=== PATIENT | female | born 1975 | race Two or more races ===

== ENCOUNTER 2022-11-09 23:41 | Emergency (ER) | payer MEDICAID ==
[~2022-11-09] VITALS: Ht 154.9 cm; Wt 68.0 kg
[2022-11-09] MEDS ORDERED: ALBU8HFA IH (23:50)
[2022-11-09] MEDS ORDERED: MONT-35 PO (23:50)
[2022-11-09] MEDS ORDERED: FLUT1BLS8 IH (23:50)
[2022-11-10] MEDS ORDERED: PredniSONE 20 MG TABLET PO ONE (01:30)
[2022-11-10] MEDS ORDERED: IPRATROPIUM BROMIDE 0.5 MG/2.5 ML NEB SOLUTION NEB ONE (01:30)
[2022-11-10] MEDS ORDERED: ALBUTEROL SULFATE 2.5 MG/0.5 ML NEB SOLUTION NEB ONE (01:30)
[2022-11-10] MEDS ORDERED: GuaiFENesin/D-METHORPHAN [SUGAR-FREE] 200-20MG/10 ML SYRUP UDCUP PO ONE (01:30)
[2022-11-10] MEDS ORDERED: GUAIFDM PO (03:02)
[2022-11-10] MEDS ORDERED: ALBU8HFA IH (03:02)
[2022-11-10] MEDS ORDERED: PRED-554 PO (03:02)
[2022-11-10] MEDS ORDERED: IPRA3AMP24 NEB (03:02)
[2022-11-10 03:11] VITALS: BP 144/64
== END 2022-11-10 03:15 | disposition home or self-care (01) ==
LOC: EMS 23:43
DX: J45.901 Unspecified asthma with (acute) exacerbation (principal); J20.9 Acute bronchitis, unspecified; J06.9 Acute upper respiratory infection, unspecified; Z88.0 Allergy status to penicillin; Z88.1 Allergy status to other antibiotic agents
CPT/HCPCS: 99285; 71045; 94640; J7512; J7613